=== PATIENT | male | born 1955 | race Two or more races ===

== ENCOUNTER 2022-04-28 06:22 | Inpatient (IN) ==
--- NOTE | 2022-04-10 09:26 | Anesthesiology Consultation ---
Date of Service April 10, 2022 Assessment & Plan (1) Encounter for pre-operative examination: - Patient seen at [facility] 04/07/[address] Richey- see his anesthesia consult on [facility] account (surgery was not booked at time of his visit). -Hospice Music Therapist needed: Icelandic (OR aware)- son aides in obtaining medical history/when paramedical aide not present -COVID screening: Per assessment on 04/07: No known COVID-19 positive contacts or current COVID-19 related symptoms. Travel screen- [place] 04/07 (via car). Patient vaccinated. At surgeon discretion if preop Covid testing being done. -Outpatient joint assessment: If surgeon requests review for outpatient joint pathway, patient is not recommended candidate for outpatient joint program from anesthesia standpoint. - Per Dr. Richey. He will review case with patient's PCP (Dr. Cedillo) regarding optimization for upcoming surgery. Patient scheduled to see PCP for follow-up visit/preop evaluation (appt 04/15; [facility] [place]). Chart Review Chart Review: Patient seen in Pre Admission Testing (04/07/22) History Surgery Operation Date: 04/28/22 09:15 Proposed Procedures p Right Total Knee Arthroplasty - Mitchel James MD Height/Weight Height: 6 ft 1 in Weight: 107.955 kg Allergies Allergy/AdvReac Type Severity Reaction Status Date / Time No Known Drug Allergies Allergy Verified 04/07/22 13:14 Medications Home Medications Medication Instructions Recorded Confirmed Last Taken bisoprolol fumarate 5 mg tablet 5 mg PO QAM 03/19/22 04/09/22 Unknown diltiazem HCl 60 mg 60 mg PO QAM 03/19/22 04/09/22 Unknown capsule,extended release 12 hr ezetimibe 10 mg tablet 10 mg PO QPM 03/19/22 04/09/22 Unknown rosuvastatin 20 mg tablet 20 mg PO QPM 03/19/22 04/09/22 Unknown Arcoxia 90 mg PO DAILY 04/07/22 04/09/22 Unknown Aspirin Protect 100 mg PO QPM 04/07/22 04/09/22 Unknown iron 50 mg iron tablet 1 tab PO DAILY 04/07/22 04/09/22 Unknown tramadol 50 mg tablet 50 mg PO TID PRN Pain 04/07/22 04/09/22 Unknown Past Medical History Medical History Anemia Hyperlipidemia Hypertension Osteoarthritis Rheumatic fever AT AGE 7 Past Family History Family History Mother Hypertension Other No family history of adverse response to anesthesia Denies family history of Ovarian cancer Prostate cancer Myocardial infarction Breast cancer Colorectal cancer Past Surgical History Surgical History History of hernia surgery A CHILD History of tonsillectomy and adenoidectomy History of tooth extraction Social History Smoking Status: Former smoker tobacco type: cigarettes Smoking cigarettes per day: HOOKAH USE IN PAST Smoking End Date: 6 MONTHS AGO Hx Alcohol Use: No Hx Substance Use: No substance use type: does not use Lab Results Anesthesia Preop Results Results Anesthesia Widget: WBC 8.90 K/ul (4.8-10.8) 04/07/22 Hgb 11.3 g/dl (14.0-18.0) L 04/07/22 Hct 36.6 % (40.1-51.0) L 04/07/22 Plt 399 K/uL (130-400) 04/07/22 Na 138 mmol/L (136-145) 04/07/22 K 3.7 mmol/L (3.5-5.1) 04/07/22 Cl 102 mmol/L (98-107) 04/07/22 CO2 29 mmol/L (21-32) 04/07/22 BUN 21 mg/dl (6-23) 04/07/22 Creat 1.00 mg/dl (0.6-1.4) 04/07/22 Glucose Level 95 mg/dl (70-99(Fasting)) 04/07/22 PT 11.1 Seconds (9.0-12.0) 04/07/22 PTT 29.3 Seconds (21.0-31.0) 04/07/22 INR 1.0 (0.9-1.1) 04/07/22 Blood Type O Positive 04/07/22 Antibody Screen NEGATIVE 04/07/22 Testing Electrocardiogram Date: 04/07/22 SB at 49bpm. Otherwise normal ECG. Chest X-Ray Date: 04/07/22 FINDINGS: Cardiomediastinal and hilar silhouettes are within normal limits. There is mild diaphragmatic flattening. No pneumothorax, pleural effusion, air space consolidation or overt pulmonary edema. Spondylitic spurring of the spine. IMPRESSION: No acute process.
[~2022-04-28 06:22] MED LIST: ACETAMINOPHEN 500 MG TAB PO SCH; CeleBREX 200 MG CAP PO SCH; FAMOTIDINE 20 MG TAB PO SCH; General Order Problem(s) SCH; LR 500ML BOLUS, THEN 15ML/HR IV SCH; METOCLOPRAMIDE HCL 10 MG TABLET PO SCH; ROPIVACAINE 0.5% HCL/PF 150 MG, BUPIVACAINE 0.75% MPF 20 ML, EPINEPHrine 30MG/30ML (OR ... INSTIL SCH; TRANEXAMIC ACID 1,000 MG **IV Intra-op IV SCH; TRANEXAMIC ACID 1,000 MG **IV Pre-op IV SCH; ceFAZolin 2000MG 2,000 MG/15 ML SYR IV SCH; dexAMETHasone 4 MG TAB PO SCH
[2022-04-28] MEDS ORDERED: BUPIVACAINE 0.5 % 5 MG/1 ML PF 10ML VIAL ONE (06:37)
[2022-04-28] MEDS ORDERED: ROPIVACAINE 0.5% 5 MG/ML 30 ML VIAL ONE (06:37)
--- NOTE | 2022-04-28 07:29 | History & Physical Report ---
Date of Service April 28, 2022 Assessment & Plan (1) Osteoarthritis of right knee: Plan: After the failure of conservative treatment I recommended proceeding with a total knee replacement. I explained the risk benefits and alternatives to the patient through an elementary special education teacher and he has consented to proceed. History of Present Illness Chief Complaint: Right knee osteoarthritis Primary Care Provider: Ulises Cedillo DO The patient is a 67-year-old male recently moved to the [facility] from [place]. He has osteoarthritis of bilateral knees. Right is worse than the left. After the failure of conservative treatment I recommended proceeding with a right total knee replacement. Allergies Allergy/AdvReac Type Severity Reaction Status Date / Time No Known Drug Allergies Allergy Verified 04/28/22 07:13 Home Medications Medication Instructions Recorded Confirmed Type bisoprolol fumarate 5 mg tablet 5 mg PO QAM 03/19/22 04/28/22 History diltiazem HCl 60 mg 60 mg PO QAM 03/19/22 04/28/22 History capsule,extended release 12 hr ezetimibe 10 mg tablet (Zetia) 10 mg PO DAILY 03/19/22 04/28/22 History rosuvastatin 20 mg tablet (Crestor) 20 mg PO DAILY 03/19/22 04/28/22 History Arcoxia 90 mg PO DAILY 04/07/22 04/28/22 History Aspirin Protect 100 mg PO QPM 04/07/22 04/28/22 History iron 50 mg iron tablet 1 tab PO DAILY 04/07/22 04/28/22 History tramadol 50 mg tablet 50 mg PO TID PRN Pain 04/07/22 04/28/22 History Past Med/Surg History Medical History Anemia Hyperlipidemia Hypertension Osteoarthritis Rheumatic fever AT AGE 7 Surgical History History of hernia surgery A CHILD History of tonsillectomy and adenoidectomy History of tooth extraction Family History Mother Hypertension Other No family history of adverse response to anesthesia Denies family history of Ovarian cancer Prostate cancer Myocardial infarction Breast cancer Colorectal cancer Social History (Updated 03/19/22 @ 09:28 by Rafat Miller LPN) Smoking Status: Former smoker Cigarettes Per Day: HOOKAH USE IN PAST; Smoking End Date: 6 MONTHS AGO; Second Hand Exposure: No; Hx Alcohol Use: No Hx Substance Use: No Preferred Language: Azeri Communication Tools: Language Line Claims Examiner Visual Impairment: No Limitations Hearing Ability: Normal Claims Examiner Required: Yes Beliefs That Will Affect Care: None marital status: Current Living Situation: Family current occupational status: retired How many Children do You have: 4 Feels Safe at Home: Yes Safety Concerns: Feels Safe At This Time Childhood Exposure to Second-Hand Smoke: No caffeine: Yes (tea daily ) Dental Care, Regularly: Yes Physical Activity Frequency: Does not Exercise Seatbelt Use: always Sunscreen Use: Yes Assistive Devices: Cane Physical Exam Constitutional: Patient is well developed and well nourished. No acute distress. Eyes: Pupils are equal and reactive to light and accommodation. Neck: trachea midline, no thyromegaly Respiratory: normal respiratory effort, lungs clear to auscultation Cardiovascular: RRR, no murmur, no edema Musculoskeletal: Right knee +10 -100 degrees. Diffuse tenderness. 2+ pseudovalgus laxity. No calf tenderness. Skin: no rashes, warm and dry Neurologic: Intact Results & Data Results & Data ([facility]) Vital Signs (Past 12 Hours) Vital Signs Temp Pulse Resp BP Pulse Ox O2 Del Method 04/28/22 07:19 36.6 C 58 L 18 110/58 L 96 Room Air Diagnostic Findings Right knee x-rays. Tricompartmental osteoarthritis with joint space narrowing, subchondral sclerosis and cyst formation, osteophyte formation.
[2022-04-28] MEDS: PREGABALIN 75 MG CAP PO SCH (07:52)
[2022-04-28] MEDS ORDERED: MIDAZOLAM HCL 1 MG/ML 2ML VIAL ONE ×2 (07:57)
[2022-04-28] MEDS ORDERED: ePHEDrine sulfate 50 MG/ML AMP IV PRN (08:23)
[2022-04-28] MEDS ORDERED: ONDANSETRON INJ 2 MG/ML 2 ML VIAL IV PRN ×3 (08:23→12:39)
[2022-04-28] MEDS ORDERED: HYDROmorphone INJ 0.5 MG/0.5 ML SYR IV PRN (08:23)
[2022-04-28] MEDS ORDERED: KETOROLAC 30 MG/ML VIAL IV PRN (08:23)
[2022-04-28] MEDS ORDERED: ATROPINE SULFATE 0.1 MG/ML 10ML SYR IV PRN (08:23)
[2022-04-28] MEDS ORDERED: ONDANSETRON INJ 2 MG/ML 2 ML VIAL ONE (09:46)
[2022-04-28] MEDS ORDERED: PROPOFOL IV EMULSION 10 MG/ML 20 ML VIAL IV ONE (09:46)
[2022-04-28] MEDS ORDERED: ePHEDrine sulfate 50 MG/ML AMP ONE (09:51)
--- NOTE | 2022-04-28 10:49 | Post Operative Brief Note ---
Immediate Post Op Note v1 Date of Surgery April 28, 2022 Pre & Post Diagnosis Operation Date: 04/28/22 09:05 Pre-Op Diagnosis: Right Knee Osteoarthritis Post-Op Diagnosis: Right Knee Osteoarthritis I identified the patient and participated in the time-out.: Yes Procedure Operation Date: 04/28/22 09:05 Actual Procedures p Right Total Knee Arthroplasty, Cemented(Right) - Mitchel James MD Surgeon Mitchel James MD Hr Consultant Roderick Mayo PA-C Estimated Blood Loss 5 Findings Consistent with Post-Op Diagnosis Osteoarthritis right knee Anesthesia Type General Regional Complications none
[2022-04-28] MEDS ORDERED: oxyCODONE HCL IR 5 MG TAB (IMMEDIATE RELEASE) PO PRN (10:51)
--- NOTE | 2022-04-28 10:51 | Operative Report ---
Post Operative Report Pre & Post Diagnosis Operation Date: 04/28/22 09:05 Pre-Op Diagnosis: Right Knee Osteoarthritis Post-Op Diagnosis: Right Knee Osteoarthritis I identified the patient and participated in the time-out.: Yes Procedure Operation Date: 04/28/22 09:05 Actual Procedures p Right Total Knee Arthroplasty, Cemented(Right) - Mitchel James MD Surgeon Mitchel James MD Windows Technical Specialist Roderick Mayo PA-C Estimated Blood Loss 5 Findings Consistent with Post-Op Diagnosis Osteoarthritis right knee Specimens Bone and cartilage Drains No drains Anesthesia Type General Regional Complications No complications Indications The patient is a 67-year-old male with right knee osteoarthritis. After the failure of conservative treatment I recommended a total knee replacement. I explained the risk benefits and alternatives to him and he consented to proceed. Description of Procedure Implants: Vance triathlon cemented cruciate retaining total knee replacement. Femur size 6. Tibia size 6 primary baseplate. Polyethylene size 6.9 mm. Patella size 39 mm symmetrical Procedure: The patient was taken to the operating room and after verifying their identity and confirming the operative side spinal anesthesia and a regional block was administered. A nonsterile tourniquet was placed on the operative leg and the operative leg was sterilely prepped and draped in usual fashion. After exsanguinating the leg and inflating the tourniquet a 6 inch incision was made over the patella and carried sharply through subcutaneous tissue. A medial parapatellar arthrotomy was performed, the patella was everted, and planed to a thickness of 14 mm. The appropriate size patella was trialed and the drill holes were completed. The knee was flexed and the femur cleaned of soft tissue. The femoral intramedullary guide was utilized to take a 5 valgus cut 10 mm total resection. The distal femur cut was completed. The cutting guide was removed. The AP sizing guide was placed in the correct size determined. The appropriately sized sized 4 in 1 cutting guide was placed and its position confirmed with the epicondyle axis and anterior cortex. The cuts were completed. The tibia was subluxed forward and the extra medullary tibial guide was placed and pinned in place. A 2 mm resection was measured on the medial tibial plateau perpendicular to the long axis of the tibia. The proximal tibia was cut. The guide was removed. A lamina access services librarian was placed with the knee in 90 of flexion in the remaining meniscus and posterior soft tissue were removed. The PCL was preserved. 20 cc of local injection was utilized in the posterior capsule and soft tissues. The knee was balanced in flexion and extension utilizing the gap radio sportscaster. The tibia was subluxed forward and the appropriately sized trial was placed and pinned in place. The femoral trial was placed and the appropriate size poly-was utilized to achieve full extension, full flexion and good stability to varus and valgus stress. Trial components were all removed. The knee was thoroughly irrigated with pulse lavage, bacteriocidal wash, and a repeat pulse lavage. 20 cc of local injection was utilized in the medial tissues and 20 cc in the lateral tissues. Antibiotic cement was mixed using vacuum technique in the tibial and femoral components were cemented in place. The poly-was inserted and the knee held in full extension while the cement hardened. The patella was cemented and clamped. Excess cement was carefully removed. After the cement hardened range of motion was once again assessed and noted to be full including full extension and good stability to varus and valgus stress with central patellar tracking. The knee was irrigated with pulse lavage, a bacteriocidal wash, and a repeat pulse lavage. 20 cc of local was used in the anterior subcutaneous tissues. The arthrotomy was closed with #1 Ethibond, the remaining incision with 2-0 Vicryl and ashley. A silver dressing was applied and a compression wrap. The patient tolerated the procedure well and there were no intraoperative complications. Roderick Mayo PA-C assisted in all aspects of the procedure including patient positioning, prepping and draping, manipulation of surgical instruments and retractors, wound closure, dressing placement, and compression wrap placement. I attest to the content of the Intraoperative Record and any orders documented therein. Any exceptions are noted below.
--- NOTE | 2022-04-28 12:36 | Anesthesiology Progress Note ---
Date of Service April 28, 2022 Anesthesia Post Procedure Vital Signs Vital Signs: Temp Pulse Pulse Resp BP BP Pulse Ox 04/28/22 12:25 71 14 102/57 L 96 04/28/22 12:10 70 14 106/54 L 96 04/28/22 11:55 36.2 C L 66 13 103/54 L 94 04/28/22 11:45 67 13 103/54 L 94 04/28/22 11:35 79 13 101/48 L 100 04/28/22 11:25 72 17 100/54 L 100 04/28/22 11:18 36.7 C 74 14 86/50 L 100 04/28/22 07:19 36.6 C 58 L 18 110/58 L 96 O2 Del Method O2 Flow Rate 04/28/22 12:25 Room Air 04/28/22 12:10 Room Air 04/28/22 11:55 Room Air 04/28/22 11:45 Room Air 04/28/22 11:35 Oxymask 4 04/28/22 11:25 Oxymask 4 04/28/22 11:18 Oxymask 8 04/28/22 07:19 Room Air Transfer of Care Handoff Completed per policy Notes Mental Status: alert / awake / arousable Patient Amnestic to Procedure: Yes Nausea / Vomiting: adequately controlled Pain: adequately controlled Airway Patency, RR, SpO2: stable & adequate BP & HR: stable & adequate Hydration State: stable & adequate Anesthetic Complications: no major complications apparent
[2022-04-28] MEDS ORDERED: NALOXONE HCL 0.4 MG/1 ML VIAL/CARP IV PRN (12:39)
[2022-04-28] MEDS: ACETAMINOPHEN 500 MG TAB PO SCH ×2 (14:24→21:26)
[2022-04-28] MEDS: ceFAZolin 2000MG 2,000 MG/15 ML SYR IV SCH (18:37)
[2022-04-28] MEDS: CeleBREX 200 MG CAP PO SCH (21:53)
[2022-04-28] MEDS: MELATONIN 3 MG TAB PO PRN (23:08)
[2022-04-29] MEDS: ceFAZolin 2000MG 2,000 MG/15 ML SYR IV SCH (02:57)
[2022-04-29] MEDS: oxyCODONE HCL IR 5 MG TAB (IMMEDIATE RELEASE) PO PRN ×4 (03:06→17:42)
[2022-04-29] MEDS: ACETAMINOPHEN 500 MG TAB PO SCH ×3 (06:18→21:15)
[2022-04-29] MEDS: PREGABALIN 75 MG CAP PO SCH (06:18)
[2022-04-29] MEDS: CeleBREX 200 MG CAP PO SCH ×2 (07:40→20:12)
--- NOTE | 2022-04-29 09:11 | Orthopedic Progress Note ---
Date of Service April 29, 2022 Assessment & Plan (1) Osteoarthritis of right knee: Plan: POD 1 s/p Right TKA PT/OT protocols. WBAT. DVT prophylaxis - ASA bid, SCD's Pain management as written. DC planning- HH services upon discharge. Plan for dc home today after PT/OT. Admission and Anticipated Discharge Date Admission Date: April 28, 2022 Subjective POD 1 Pt lying in bed awake, and alert. Family present and interpreting for patient. Pt having some pain this AM in the knee. Appears comfortable presently. No other complaints. Discussed with family about the needs for PT after dc. They are hoping for HH services if possible. Will discuss with CM. Physical Exam Physical Exam: Dressings C/D/I. Calves, soft,NT. NV intact. Toes mobile. Pt has good DF/PF of the right foot. Results & Data ([facility]) Vital Signs (Past 12 Hours) Vital Signs Temp Pulse Resp BP Pulse Ox O2 Del Method 04/29/22 08:16 36.6 C 67 16 112/70 96 Room Air 04/29/22 03:10 36.7 C 72 16 115/69 94 Room Air 04/28/22 23:08 37 C 65 16 110/65 96 Room Air 04/28/22 22:29 36.3 C L 72 22 107/61 95 Room Air
[2022-04-29] MEDS: ASPIRIN 81 MG ECTAB PO SCH ×2 (10:51→20:12)
[2022-04-29] MEDS: HYDROmorphone INJ 0.5 MG/0.5 ML SYR IV PRN ×3 (11:35→20:29)
--- NOTE | 2022-04-29 13:34 | Hospitalist Consultation ---
Date of Consultation April 29, 2022 Assessment & Plan (1) Status post right knee replacement: - POD#1 s/p R TKA - Pain control, periop abx, DVT ppx, and WB status per primary service - Recommend I/S q1h while awake for atelectasis/pna prevention - DVT ppx advised for minimum of 14 days, drug choice/dose/duration at ortho's discretion - PT/OT eval and case management consult to assist in dc planning - Post op CBC and BMP have been ordered (2) Hypertension: - BP well controlled on Diltiazem & Bisoprolol (3) Hyperlipidemia: - Continue Zetia and Crestor (4) Anemia: - Chronic, Hgb 11.3 pre op - Obtain CBC w/o diff today - Continue iron supplementation - F/u with pcp Plan Recommendations are as outlined above. Will sign off at this time as patient is medically stable for discharge from hospitalists standpoint. Thank you for allowing us to participate in the care of your patient. Above plan of care has been d/w Dr. Ring who has also seen and evaluated this patient. History of Present Illness Reason for Consultation: Medical management Requesting Physician: Dr. James Attending Physician: Mitchel James MD History of Present Illness Mr. Abraham is a pleasant 67 y/o M who was admitted under Dr. James's service for elective right total knee arthroplasty due to osteoarthritis and chronic knee pain that failed conservative measures. His son acts as a construction supervisor/carpenter to assist with language barrier as patient recently moved from [place]. Patient was taken to the OR on 04/28. He received spinal anesthesia. He was medicated perioperatively with pain cocktail and prophylactic antibiotics. Patient resides at home with his in a one story apartment but does have to climb several steps to enter. He plans to return there upon discharge. Patient thus far has had a fairly uneventful perioperative course but does endorse knee pain 7/10. He denies having a personal or family history of PE/DVT. He currently denies chest pain, dyspnea, n/v/d, f/c, headache, or gu symptoms. Hospitalists were asked to see in consult for medical management. Allergies Allergy/AdvReac Type Severity Reaction Status Date / Time No Known Drug Allergies Allergy Verified 04/28/22 07:13 Home Medications Medication Instructions Recorded Confirmed Type bisoprolol fumarate 5 mg tablet 5 mg PO QAM 03/19/22 04/28/22 History diltiazem HCl 60 mg 60 mg PO QAM 03/19/22 04/28/22 History capsule,extended release 12 hr ezetimibe 10 mg tablet (Zetia) 10 mg PO DAILY 03/19/22 04/28/22 History rosuvastatin 20 mg tablet (Crestor) 20 mg PO DAILY 03/19/22 04/28/22 History iron 50 mg iron tablet 1 tab PO DAILY 04/07/22 04/28/22 History tramadol 50 mg tablet 50 mg PO TID PRN Pain 04/07/22 04/28/22 History oxycodone 5 mg tablet 5 mg PO Q4 PRN pain 5 days #30 tabs 04/28/22 Rx acetaminophen 500 mg capsule 1,000 mg PO Q8H pain 14 days #84 04/29/22 Rx caps aspirin 81 mg tablet,delayed 81 mg PO BID 30 days #60 tabs 04/29/22 Rx release (Ecotrin Low Strength) celecoxib 200 mg capsule (Celebrex) 200 mg PO BID 30 days #60 caps 04/29/22 Rx polyethylene glycol 3350 17 gram 17 g PO DAILY PRN constipation #5 04/29/22 Rx oral powder packet (Miralax) ea Patient History Medical History Anemia Hyperlipidemia Hypertension Osteoarthritis Rheumatic fever AT AGE 7 Surgical History History of hernia surgery A CHILD History of tonsillectomy and adenoidectomy History of tooth extraction Family History Mother Hypertension Other No family history of adverse response to anesthesia Denies family history of Ovarian cancer Prostate cancer Myocardial infarction Breast cancer Colorectal cancer Social History (Updated 03/19/22 @ 09:28 by Rafat Miller LPN) Smoking Status: Never smoker Cigarettes Per Day: HOOKAH USE IN PAST; Second Hand Exposure: No; Hx Alcohol Use: No Hx Substance Use: No Preferred Language: Chinese Communication Ability: Effective Communication Tools: Language Line Lucerne Farmer Visual Impairment: No Limitations Hearing Ability: Normal [place] Farmer Required: Yes and Video Beliefs That Will Affect Care: None marital status: Current Living Situation: Spouse and Family current occupational status: retired How many Children do You have: 4 Feels Safe at Home: Yes Childhood Exposure to Second-Hand Smoke: No caffeine: Yes (tea daily ) Dental Care, Regularly: Yes Physical Activity Frequency: Does not Exercise Seatbelt Use: always Sunscreen Use: Yes Assistive Devices: None Review of Systems Review of Systems: All systems reviewed and are unremarkable except as noted in HPI and below. Denies fever, chills, fatigue, headache, nasal congestion, sore throat, cough, chest pain, shortness of breath, palpitations, orthopnea, PND, abdominal pain, n/v/d, constipation, dysuria, hematuria, frequency, back pain, easy bruising or bleeding, skin lesions or rashes. Physical Exam Physical Exam: GENERAL: 67 yo Well-developed, well-nourished male. NAD. HENT: AT/NC. PERRLA. Neck supple. No lymphadenopathy. LUNGS: Clear to auscultation bilaterally. No W/R/R. CARDIOVASCULAR: Regular rate and rhythm. ABDOMEN: Soft, non-tender and non-distended. Bs normoactive x 4 quad. EXTREMITIES: No edema. Non-tender. Peripheral pulses +2/4. R knee wrapped in karan. No visible drains. Neg filiberto's sign. R Calf nontender. NEUROLOGIC: A&O x3. No focal neurological deficits. CN II-XII grossly intact. PSYCHIATRIC: Cooperative. Appropriate mood and affect. SKIN: Warm, dry, intact. No rashes or lesions. Results & Data Results & Data ([facility]) Vital Signs (Past 12 Hours) Vital Signs Temp Pulse Pulse Pulse Resp BP Pulse Ox 04/29/22 11:16 36.6 C 64 16 120/72 93 04/29/22 10:05 36.6 C 65 67 66 16 112/70 96 04/29/22 08:16 36.6 C 67 16 112/70 96 04/29/22 03:10 36.7 C 72 16 115/69 94 O2 Del Method 04/29/22 11:16 Room Air 04/29/22 10:05 04/29/22 08:16 Room Air 04/29/22 03:10 Room Air Laboratory Results Labs dated 04/07/22 wbc-8.90, hgb-11.3, hct-36.6, platelet-399 sodium-138, K-3.7, chloride-102, CO2-29, BUN-21, Creat-1.0, Glucose-95, Ca-9.4 Diagnostic Findings XR chest Pre-admission PA/Lat HISTORY: 66 years-old Male pat preoperative exam. No acute chest complaints COMPARISON: None TECHNIQUE: PA and lateral views of the chest FINDINGS: Cardiomediastinal and hilar silhouettes are within normal limits. There is mild diaphragmatic flattening. No pneumothorax, pleural effusion, airspace consolidation or overt pulmonary edema. Spondylitic spurring of the spine. IMPRESSION: No acute process. ACT 112: Negative or not required by law. The above report was generated using voice recognition software. It may contain grammatical, syntax or spelling errors. Electronically signed by: Jayden Curry M.D. 04/07/2022 2:52 PM Dictated:04/07/22 1450 Transcribed: 04/07/22 1450 ECG Additional Comments: EKG 04/07/22- Sinus bradycardia, no acute ST-T wave changes. Rate 49 bpm PG Care Time/CCT Total # of Minutes Spent Total Time Spent with Patient: Total time spent is greater than 50% in coordination of care (as documented) at patient's floor/unit and/or counseling patient: Coding Level of Care Code INP/OBS CONSULT LVL 4, 60 MIN Diagnoses Status post right knee replacement Z96.651 Hypertension I10 Hyperlipidemia E78.5 Anemia D64.9
[2022-04-29 14:54] LABS: Basophils # (auto) 0.05 K/uL (0-0.2); Basophils % (auto) 0.3 %; Hematocrit (blood only) 33.8 % (40.1-51.0); Hemoglobin 10.8 g/dl (14.0-18.0); Immature Granulocytes # (auto) 0.05 K/uL (0.00-0.02); Immature Granulocytes % (auto) 0.3 %; Lymphocytes # (auto) 1.72 K/uL (1.2-3.4); Mean Corpuscular Hemoglobin 23.2 pg (25.0-34.0); Mean Corpuscular Volume 72.5 fL (80.0-100.0); Mean Platelet Volume 9.4 fL (9.4-12.4); Monocytes # (auto) 1.02 K/uL (0.24-0.82); Monocytes % (auto) 7.1 %; Neutrophils # (auto) 11.53 K/uL (1.4-6.5); Neutrophils % (auto) 80.3 %; Platelet Count 308 K/uL (130-400); RDW Coefficient of Variation 18.6 % (11.5-14.5); RDW Standard Deviation 47.5 fL (36.4-46.3); Red Blood Count 4.66 M/uL (4.63-6.08); White Blood Count 14.37 K/ul (4.8-10.8)
[2022-04-29 15:10] LABS: BUN Creatinine Ratio 25.6 (10-20); Calcium 9.3 mg/dl (8.5-10.1); Creatinine Clr Calc Pharmacy 99.4 ml/min; Est GFR (African American) 100.6 ml/min; Est GFR (Non-African American) 86.8 ml/min; Potassium 4.2 mmol/L (3.5-5.1)
[2022-04-30] MEDS: PREGABALIN 75 MG CAP PO SCH (03:03)
[2022-04-30] MEDS: oxyCODONE HCL IR 5 MG TAB (IMMEDIATE RELEASE) PO PRN ×3 (05:02→21:03)
[2022-04-30] MEDS: ACETAMINOPHEN 500 MG TAB PO SCH ×3 (05:03→20:56)
[2022-04-30] MEDS: ASPIRIN 81 MG ECTAB PO SCH ×2 (10:57→20:56)
[2022-04-30] MEDS: KETOROLAC TROMETHAMINE 15 MG/ML VIAL IV SCH ×3 (11:43→23:04)
--- NOTE | 2022-04-30 13:13 | Orthopedic Progress Note ---
Date of Service April 30, 2022 Assessment & Plan (1) Osteoarthritis of right knee: Plan: Postop day 2 status post right total knee arthroplasty PT/OT protocols. Weightbearing as tolerated. After discussion with physical therapy, they feel he would be a candidate for a rehab facility. DVT prophylaxis-aspirin p.o. twice daily, SCDs Pain management as written. DC planning-I have spoken to the family as well as case management. [facility] referral for [facility] has been placed. We feel at this time patient would be better served to go to a rehab facility. He has 15 stairs to get up into his apartment which are outdoor steps per his son. At this time he would not be able to ambulate stairs per physical therapy. They would also be able to manage his pain control better at the [facility]. Await for authorization and plan for [facility] if approved. Admission and Anticipated Discharge Date Admission Date: April 28, 2022 Subjective Postop day 2 Patient was seen earlier this morning and was complaining of pain of the right knee. He has been keeping up with his oxycodone fairly regularly but has been needing some IV hydromorphone at times. Celebrex was discontinued and I restarted him on Toradol 15 mg IV every 6 hours. Nursing states that this has seemed to help. I also spoke with physical therapy. Patient is still ambulating only up to about 30 steps. Is somewhat painful. Did not work with going up and down steps today. I spoke to the physical therapist and she feels there is no way that he would be able to attempt stairs at this time. Currently the patient is resting comfortably. His family is present. I discussed his care with his son. Physical Exam Physical Exam: Dressings have been removed. Silverlon dressing is clean, dry, and intact. He has right knee swelling consistent with surgery. Calves are soft nontender. Neurovascular intact. Toes are mobile. Results & Data ([facility]) Vital Signs (Past 12 Hours) Vital Signs Temp Pulse Pulse Resp BP Pulse Ox O2 Del Method 04/30/22 12:14 67 16 108/63 93 Room Air 04/30/22 07:26 36.6 C 60 16 126/70 92 Room Air
[2022-05-01] MEDS: PREGABALIN 75 MG CAP PO SCH (05:58)
[2022-05-01] MEDS: KETOROLAC TROMETHAMINE 15 MG/ML VIAL IV SCH ×3 (06:07→17:45)
[2022-05-01] MEDS: ACETAMINOPHEN 500 MG TAB PO SCH ×3 (06:07→21:23)
--- NOTE | 2022-05-01 06:18 | Orthopedic Progress Note ---
Date of Service May 01, 2022 Assessment & Plan (1) Osteoarthritis of right knee: Plan: Postop day 3 status post right total knee arthroplasty PT/OT protocols. Weightbearing as tolerated. After discussion with physical therapy, they feel he would be a candidate for a rehab facility. DVT prophylaxis-aspirin p.o. twice daily, SCDs Pain management as written. DC planning-I have spoken to the family as well as case management. A referral for [facility] has been placed. We feel at this time patient would be better served to go to a rehab facility. He has 15 stairs to get up into his apartment which are outdoor steps per his son. At this time he would not be able to ambulate stairs per physical therapy. They would also be able to manage his pain control better at the [facility] facility. Await for authorization and plan for [facility] if approved. Plan for dc to [facility] today if approved. Admission and Anticipated Discharge Date Admission Date: April 28, 2022 Subjective POD 3 Pt awake, alert this AM. Continues to have pain consistent with surgery but shows me that he is getting better ROM this AM. No family present and he does not appear to have any other new complaints this AM. Physical Exam Physical Exam: Silverlon C/D/I. Calves soft,NT. NV intact. Toes mobile. He does have better ROM this AM. 10-80 this AM. No other changes noted. Results & Data ([facility]) Vital Signs (Past 12 Hours) Vital Signs Temp Pulse Resp BP Pulse Ox O2 Del Method 04/30/22 21:21 37.1 C 66 16 125/73 94 Room Air
[2022-05-01] MEDS: ASPIRIN 81 MG ECTAB PO SCH ×2 (07:36→21:23)
[2022-05-01] MEDS: oxyCODONE HCL IR 5 MG TAB (IMMEDIATE RELEASE) PO PRN ×3 (07:36→21:23)
[2022-05-02] MEDS: KETOROLAC TROMETHAMINE 15 MG/ML VIAL IV SCH ×4 (00:09→17:26)
[2022-05-02] MEDS: oxyCODONE HCL IR 5 MG TAB (IMMEDIATE RELEASE) PO PRN ×2 (04:25→21:45)
[2022-05-02] MEDS: ACETAMINOPHEN 500 MG TAB PO SCH ×3 (05:36→21:46)
[2022-05-02] MEDS: PREGABALIN 75 MG CAP PO SCH (05:37)
[2022-05-02] MEDS: ASPIRIN 81 MG ECTAB PO SCH ×2 (07:33→21:45)
--- NOTE | 2022-05-02 10:39 | Orthopedic Progress Note ---
Date of Service May 02, 2022 Assessment & Plan (1) Osteoarthritis of right knee: Plan: Postop day 4 status post right total knee arthroplasty PT/OT protocols. Weightbearing as tolerated. After discussion with physical therapy, they feel he would be a candidate for a rehab facility. DVT prophylaxis-aspirin p.o. twice daily, SCDs Pain management as written. DC planning-I have spoken to the family as well as case management. A referral for [facility] has been placed. We feel at this time patient would be better served to go to a rehab facility. He has 15 stairs to get up into his apartment which are outdoor steps per his son. At this time he would not be able to ambulate stairs per physical therapy. They would also be able to manage his pain control better at the [facility] facility. Await for authorization and plan for [facility] if approved. Patient approved for [facility]. Currently waiting for bed. Discharge to [facility] when bed available. Admission and Anticipated Discharge Date Admission Date: April 28, 2022 Subjective Postop day 4 Patient lying in bed awake and alert. His son is present visiting him. Currently waiting for a bed at [facility]. No new complaints. Physical Exam Physical Exam: Silverlon dressing is clean, dry, and intact. There is a small skin blister noted at the proximal medial corner of the dressing due to the Silverlon adhesive/dressing sliding downward a little bit. Plan for removal and placement of a regular dressing. Calves are soft nontender. Neurovascular is intact. Toes are mobile. Results & Data ([facility]) Vital Signs (Past 12 Hours) Vital Signs Temp Pulse Resp BP Pulse Ox O2 Del Method 05/02/22 07:35 36.7 C 61 18 109/65 96 Room Air
[2022-05-02] MEDS: MELATONIN 3 MG TAB PO PRN (21:48)
[2022-05-03] MEDS: KETOROLAC TROMETHAMINE 15 MG/ML VIAL IV SCH ×5 (00:23→23:26)
[2022-05-03] MEDS: ACETAMINOPHEN 500 MG TAB PO SCH ×3 (05:34→21:32)
[2022-05-03] MEDS: oxyCODONE HCL IR 5 MG TAB (IMMEDIATE RELEASE) PO PRN ×2 (05:37→22:48)
[2022-05-03] MEDS: PREGABALIN 75 MG CAP PO SCH (05:38)
[2022-05-03] MEDS: ASPIRIN 81 MG ECTAB PO SCH ×2 (08:44→21:32)
--- NOTE | 2022-05-03 09:29 | Orthopedic Progress Note ---
Date of Service May 03, 2022 Assessment & Plan (1) Osteoarthritis of right knee: Plan: Postop day 5 status post right total knee arthroplasty PT/OT protocols. Weightbearing as tolerated. After discussion with physical therapy, they feel he would be a candidate for a rehab facility. DVT prophylaxis-aspirin p.o. twice daily, SCDs Pain management as written. DC planning- Awaiting bed at [facility] rehab. Admission and Anticipated Discharge Date Admission Date: April 28, 2022 Subjective Postop day 5 Patient sitting up in bed awake and alert. Appears comfortable. No new complaints. Physical Exam Physical Exam: Silverlon dressing has been removed. Regular dressing has been reapplied. Wound does appear benign. Skin blister noted proximally. Calves are soft nontender. Neurovascular intact. Toes are mobile. Results & Data ([facility]) Vital Signs (Past 12 Hours) Vital Signs Temp Pulse Pulse Resp BP BP Pulse Ox 05/03/22 07:35 36.6 C 60 18 102/65 96 05/02/22 22:43 36.8 C 65 18 107/64 96 05/02/22 21:45 O2 Del Method 05/03/22 07:35 Room Air 05/02/22 22:43 05/02/22 21:45 Room Air
[2022-05-03] MEDS: MELATONIN 3 MG TAB PO PRN (21:34)
[2022-05-04] MEDS: KETOROLAC TROMETHAMINE 15 MG/ML VIAL IV SCH (05:52)
[2022-05-04] MEDS: ACETAMINOPHEN 500 MG TAB PO SCH (05:53)
[2022-05-04] MEDS: PREGABALIN 75 MG CAP PO SCH (05:53)
[2022-05-04] MEDS ORDERED: KETOROLAC TROMETHAMINE 15 MG/ML VIAL IV PRN (07:47)
[2022-05-04] MEDS: ASPIRIN 81 MG ECTAB PO SCH (08:08)
--- NOTE | 2022-05-04 08:08 | Orthopedic Progress Note ---
Date of Service May 04, 2022 Assessment & Plan (1) Osteoarthritis of right knee: Plan: Postop day 6 status post right total knee arthroplasty PT/OT protocols. Weightbearing as tolerated. After discussion with physical therapy, they feel he would be a candidate for a rehab facility. DVT prophylaxis-aspirin p.o. twice daily, Dm,MELL's Pain management as written. Change Toradol to as needed. DC planning- Awaiting bed at [facility] rehab. Possible bed availability today. We will place a discharge order for pending transfer Admission and Anticipated Discharge Date Admission Date: May 02, 2022 Subjective Postop day 6 Patient awake and alert. Appears comfortable. No new complaints. Per case management notes, possible bed availability today at [facility]. Physical Exam Physical Exam: Incision remains benign. Swelling continues to resolve. Small blister proximally appears normal. Calves are soft and nontender. Neurovascular intact. Toes are mobile. Results & Data ([facility]) Vital Signs (Past 12 Hours) Vital Signs Temp Pulse Pulse Resp BP Pulse Ox O2 Del Method 05/04/22 07:27 36.5 C 65 18 126/73 94 Room Air 05/03/22 22:08 37 C 72 16 130/79 95 Room Air 05/03/22 21:10 Room Air
== END 2022-05-04 13:12 | DRG 470 ==
LOC: PACUINP 06:22 → ASU 06:22 → SUATTDRO 12:40 → 3N 13:42

== ENCOUNTER 2022-10-13 10:32 | Inpatient (IN) ==
--- NOTE | 2022-10-01 15:35 | Anesthesiology Consultation ---
Date of Service October 01, 2022 Assessment & Plan (1) Encounter for pre-operative examination: Chart Review Chart Review: Acceptable Risk for Surgery and Patient NOT seen in Pre Admission Testing -PCP visit 09/18/22: "for pre-op optimization for L TKA scheduled on 10/13/[address] James... Consultation for LEFT Knee Total Knee Arthroplasty... -no recent anginal symptoms -no history of arrhythmias, no recent syncopal episodes -RCRI score 0 points with 3.9% 30 day risk of , IA, or cardiac arrest -ACS Surgical risk with 4.7% risk of any complication, 4.1% risk of serious complication and 19.7% risk for discharge to nursing or rehab facility -EKG completed on 04/07/22 notable for sinus bradycardia at 49BPM without ST-Twave changes -CXR completed on 04/07/22 negative for acute processes -Echocardiogram completed on 04/14/22 with EF 55-60%, moderate aortic valve sclerosis without significant aortic valvular stenosis -Will have patientHOLD his aspirin starting October 05, 2022-- 1 week prior to procedure -Patient last hemoglobin level 10.8 on 04/29/22 -- Will have him repeat prior to procedure. -Type and screen completed on 04/07/22 with O positive blood type, negative antibody screen -Patient will likely require SNF vs inpatient rehab stay post surgery -At this time, patient is medically optimized for the above procedure -Recent Anesthesia Experience: R TKA 04/28/22: SAB (L3-4 x 1 attempt), PNB, MAC -COVID screening: Per PAT nursing assessment on 10/01/22, No known COVID-19 positive contacts or current COVID-19 related symptoms. Travel screen negative. Patient vaccinated for Covid. At surgeon discretion if preop Covid testing being done. -Outpatient joint assessment: If surgeon requests review for outpatient joint pathway, patient is not recommended candidate for outpatient joint program from anesthesia standpoint. History Surgery Operation Date: 10/13/22 14:00 Proposed Procedures p Left Total Knee Arthroplasty - Mitchel James MD Height/Weight Height: 6 ft 1 in Weight: 104 kg Allergies Allergy/AdvReac Type Severity Reaction Status Date / Time No Known Drug Allergies Allergy Verified 10/01/22 14:36 Medications Home Medications Medication Instructions Recorded Confirmed Last Taken bisoprolol fumarate 5 mg tablet 5 mg PO QAM 90 days #90 tabs 05/20/22 10/01/22 Unknown hydrocortisone 2.5 % topical cream See Rx Instructions .Route 07/09/22 10/01/22 Unknown with perineal applicator .COMPLEX #28 grams (Procto-Med HC) aspirin 81 mg tablet,delayed 81 mg PO QAM 09/18/22 10/01/22 Unknown release ferrous gluconate 324 mg (38 mg 324 mg PO .every other day 90 days 09/18/22 10/01/22 Unknown iron) tablet #90 tabs diltiazem HCl 120 mg 120 mg PO QAM 10/01/22 10/01/22 Unknown capsule,extended release 24 hr ezetimibe 10 mg tablet (Zetia) 10 mg PO QAM 10/01/22 10/01/22 Unknown pantoprazole 40 mg tablet,delayed 40 mg PO BID 10/01/22 10/01/22 Unknown release rosuvastatin 20 mg tablet (Crestor) 20 mg PO HS 10/01/22 10/01/22 Unknown Past Medical History Medical History (Updated 10/01/22 @ 15:31 by Valerie Bloom PA-C) Anemia PCP monitoring (pt occasionally takes PO iron supplements; not currently taking) GERD (gastroesophageal reflux disease) Hyperlipidemia Hypertension Osteoarthritis Osteoarthritis of right knee s/p TKA 04/28/22 Rheumatic fever AT AGE 7 Past Family History Family History Mother Hypertension Other No family history of adverse response to anesthesia Denies family history of Ovarian cancer Prostate cancer Myocardial infarction Breast cancer Colorectal cancer Past Surgical History Surgical History (Updated 10/01/22 @ 15:31 by Valerie Bloom PA-C) History of hernia surgery A CHILD History of tonsillectomy and adenoidectomy History of tooth extraction Hx of total knee replacement Right TKA 04/28/22: SAB (L3-4 x 1 attempt), PNB, MAC Social History Smoking Status: Never smoker tobacco type: cigarettes Smoking cigarettes per day: HOOKAH USE IN PAST Do You Dip or Chew Tobacco: No Hx Alcohol Use: No Hx Substance Use: No substance use type: does not use Lab Results Anesthesia Preop Results Results Anesthesia Widget: WBC 5.98 K/ul (4.8-10.8) 09/18/22 Hgb 12.6 g/dl (14.0-18.0) L 09/18/22 Hct 39.7 % (42.0-52.0) L 09/18/22 Plt 281 K/uL (130-400) 09/18/22 Na 139 mmol/L (136-145) 09/18/22 K 3.8 mmol/L (3.5-5.1) 09/18/22 Cl 107 mmol/L (98-107) 09/18/22 CO2 26 mmol/L (21-32) 09/18/22 BUN 17 mg/dl (6-23) 09/18/22 Creat 0.74 mg/dl (0.6-1.4) 09/18/22 Glucose Level 119 mg/dl (70-99(Fasting)) H 09/18/22 COVID-19 PCR NEGATIVE (Negative) 09/18/22 Testing Electrocardiogram Date: 04/07/22 Findings: + SB @ (49bpm) Chest X-Ray Date: 04/07/22 Findings: + NAD Echocardiogram Date: 04/14/22 EF: 55-60% LV Function: normal mod cLVH. Gr I DD. Aortic valve sclerosis is moderate, without any significant aortic stenosis. mild AR. Mild MR. nl RVSP.
[~2022-10-13 10:32] MED LIST changes: +BUPIVACAINE 0.5 % 5 MG/1 ML PF 10ML VIAL ONE; -FAMOTIDINE 20 MG TAB PO SCH; -General Order Problem(s) SCH; -METOCLOPRAMIDE HCL 10 MG TABLET PO SCH; +ROPIVACAINE 0.5% 5 MG/ML 30 ML VIAL ONE; -TRANEXAMIC ACID 1,000 MG **IV Intra-op IV SCH
[2022-10-13] MEDS ORDERED: PROPOFOL IV EMULSION 10 MG/ML 20 ML VIAL IV ONE ×3 (12:44→15:06)
[2022-10-13] MEDS ORDERED: MIDAZOLAM HCL 1 MG/ML 2ML VIAL ONE ×2 (12:47→13:02)
[2022-10-13] MEDS ORDERED: fentaNYL citrate PF 100 MCG/2 ML VIAL ONE (12:47)
--- NOTE | 2022-10-13 13:02 | History & Physical Report ---
Date of Service October 13, 2022 Assessment & Plan (1) Osteoarthritis of left knee: Plan: Left total knee replacement. I explained the risk benefits and alternatives to him and he has consented to proceed. History of Present Illness Chief Complaint: Left knee osteoarthritis Primary Care Provider: Ulises Cedillo DO The patient is a 67-year-old male with left knee osteoarthritis. After failing conservative treatment I recommended proceeding with a left total knee replacement. Allergies Allergy/AdvReac Type Severity Reaction Status Date / Time No Known Drug Allergies Allergy Verified 10/13/22 11:10 Home Medications Medication Instructions Recorded Confirmed Type bisoprolol fumarate 5 mg tablet 5 mg PO QAM 90 days #90 tabs 05/20/22 10/13/22 Rx hydrocortisone 2.5 % topical cream See Rx Instructions .Route 07/09/22 10/13/22 Rx with perineal applicator .COMPLEX #28 grams (Procto-Med HC) aspirin 81 mg tablet,delayed 81 mg PO QAM 09/18/22 10/13/22 History release ferrous gluconate 324 mg (38 mg 324 mg PO .every other day 90 days 09/18/22 10/13/22 Rx iron) tablet #90 tabs diltiazem HCl 120 mg 120 mg PO QAM 10/01/22 10/13/22 History capsule,extended release 24 hr ezetimibe 10 mg tablet (Zetia) 10 mg PO QAM 10/01/22 10/13/22 History pantoprazole 40 mg tablet,delayed 40 mg PO BID 10/01/22 10/13/22 History release rosuvastatin 20 mg tablet (Crestor) 20 mg PO HS 10/01/22 10/13/22 History Past Med/Surg History Medical History Anemia PCP monitoring (pt occasionally takes PO iron supplements; not currently taking) GERD (gastroesophageal reflux disease) Hyperlipidemia Hypertension Osteoarthritis Osteoarthritis of right knee s/p TKA 04/28/22 Rheumatic fever AT AGE 7 Surgical History History of hernia surgery A CHILD History of tonsillectomy and adenoidectomy History of tooth extraction Hx of total knee replacement Right TKA 04/28/22: SAB (L3-4 x 1 attempt), PNB, MAC Family History Mother Hypertension Other No family history of adverse response to anesthesia Denies family history of Ovarian cancer Prostate cancer Myocardial infarction Breast cancer Colorectal cancer Social History Smoking Status: Never smoker Cigarettes Per Day: HOOKAH USE IN PAST; Second Hand Exposure: No; Do You Dip or Chew Tobacco: No; Tobacco Cessation Education Requested by Patient: No Hx Alcohol Use: No Hx Substance Use: No Preferred Language: French Communication Ability: Impaired Communication Ability Comment: LANGUAGE BARRIER Communication Tools: Language Line Reading Intervention Teacher Visual Impairment: No Limitations Hearing Ability: Normal Reading Intervention Teacher Required: Yes and Video Beliefs That Will Affect Care: None marital status: Current Living Situation: Spouse and Family current occupational status: retired How many Children do You have: 4 Other Information That Helps Us Care for You: No Childhood Exposure to Second-Hand Smoke: No caffeine: Yes (tea daily ) Dental Care, Regularly: Yes Physical Activity Frequency: Does not Exercise Seatbelt Use: always Sunscreen Use: Yes Assistive Devices: Cane Physical Exam Constitutional: Well-developed, well-nourished, no acute distress. Awake alert and oriented x3. Eyes: Pupils equal and reactive to light ENMT: Clear Neck: Supple Respiratory: Clear to auscultation Cardiovascular: Regular rate and rhythm Musculoskeletal: Left knee. Decreased range of motion, moderate effusion, medial and lateral joint line tenderness. No calf tenderness. Skin: Intact Results & Data Results & Data Vital Signs (Past 12 Hours) Vital Signs Temp Pulse Resp BP Pulse Ox O2 Del Method 10/13/22 11:04 36.7 C 57 L 20 124/56 L 97 Room Air
[2022-10-13] MEDS ORDERED: ePHEDrine sulfate 50 MG/ML AMP IV PRN (13:05)
[2022-10-13] MEDS ORDERED: ONDANSETRON INJ 2 MG/ML 2 ML VIAL IV PRN ×2 (13:05→15:07)
[2022-10-13] MEDS ORDERED: ATROPINE SULFATE 0.1 MG/ML 10ML SYR IV PRN (13:05)
[2022-10-13] MEDS ORDERED: fentaNYL citrate PF 100 MCG/2 ML VIAL IV PRN (13:05)
[2022-10-13] MEDS ORDERED: ORTHO JOINT ANESTHETIC ONE (13:29)
[2022-10-13] MEDS ORDERED: ONDANSETRON INJ 2 MG/ML 2 ML VIAL ONE (14:12)
--- NOTE | 2022-10-13 15:05 | Post Operative Brief Note ---
Immediate Post Op Note v1 Date of Surgery October 13, 2022 Pre & Post Diagnosis Operation Date: 10/13/22 12:45 Pre-Op Diagnosis: Left Knee Primary Osteoarthritis Post-Op Diagnosis: Left Knee Primary Osteoarthritis I identified the patient and participated in the time-out.: Yes Procedure Operation Date: 10/13/22 12:45 Actual Procedures p Left Total Knee Arthroplasty, Cemented(Left) - Mitchel James MD Surgeon Mitchel James MD Social Service Coordinator Jenn Harmon PA-C Estimated Blood Loss 5 Findings Consistent with Post-Op Diagnosis Osteoarthritis of left knee Anesthesia Type MAC Spinal Regional
--- NOTE | 2022-10-13 15:06 | Operative Report ---
Post Operative Report Pre & Post Diagnosis Operation Date: 10/13/22 12:45 Pre-Op Diagnosis: Left Knee Primary Osteoarthritis Post-Op Diagnosis: Left Knee Primary Osteoarthritis I identified the patient and participated in the time-out.: Yes Procedure Operation Date: 10/13/22 12:45 Actual Procedures p Left Total Knee Arthroplasty, Cemented(Left) - Mitchel James MD Surgeon Mitchel James MD Furniture Assembly Supervisor Jenn Harmon PA-C Estimated Blood Loss 5 Findings Consistent with Post-Op Diagnosis Osteoarthritis left knee Specimens Bone and cartilage left knee Anesthesia Type MAC Spinal Regional Complications No complications Indications Patient is a 67-year-old male with left knee osteoarthritis. After the failure of conservative treatment I recommended a left total knee replacement. I explained the risk benefits and alternatives to him and he consented to proceed. Description of Procedure Implants: Vance triathlon cruciate retaining cemented total knee replacement. Femur size 7. Tibia size 6 primary baseplate. Polyethylene size 6 x 11 mm cruciate stabilized. Patella size 39 mm symmetrical Procedure the patient was taken to the operating room and after verifying their identity and confirming the operative side spinal anesthesia and a regional block was administered. A nonsterile tourniquet was placed on the operative leg and the operative leg was sterilely prepped and draped in usual fashion. After exsanguinating the leg and inflating the tourniquet a 6 inch incision was made over the patella and carried sharply through subcutaneous tissue. A medial par apatellar arthrotomy was performed, the patella was everted, and planed to a thickness of 14 mm. The appropriate size patella was trialed and the drill holes were completed. The knee was flexed and the femur cleaned of soft tissue. The femoral intramedullary guide was utilized to take a 5 valgus cut 10 mm total resection. The distal femur cut was completed. The cutting guide was removed. The AP sizing guide was placed in the correct size determined. The appropriately sized sized 4 in 1 cutting guide was placed and its position confirmed with the epicondyle axis and anterior cortex. The cuts were completed. The tibia was subluxed forward and the extra medullary tibial guide was placed and pinned in place. A 2 mm resection was measured on the medial tibial plateau perpendicular to the long axis of the tibia. The proximal tibia was cut. The guide was removed. A lamina printed circuit boards inspector was placed with the knee in 90 of flexion in the remaining meniscus and posterior soft tissue were removed. The PCL was preserved. 20 cc of local injection was utilized in the posterior capsule and soft tissues. The knee was balanced in flexion and extension utilizing the gap patternmaker hand. The tibia was subluxed forward and the appropriately sized trial was placed and pinned in place. The femoral trial was placed and the appropriate size poly-was utilized to achieve full extension, full flexion and good stability to varus and valgus stress. Trial components were all removed. The knee was thoroughly irrigated with pulse lavage, bacteriocidal wash, and a repeat pulse lavage. 20 cc of local injection was utilized in the medial tissues and 20 cc in the lateral tissues. Antibiotic cement was mixed using vacuum technique in the tibial and femoral components were cemented in place. The poly-was inserted and the knee held in full extension while the cement hardened. The patella was cemented and clamped. Excess cement was carefully removed. After the cement hardened range of motion was once again assessed and noted to be full including full extension and good stability to varus and valgus stress with central patellar tracking. The knee was irrigated with pulse lavage, a bacteriocidal wash, and a repeat pulse lavage. 20 cc of local was used in the anterior subcutaneous tissues. The arthrotomy was closed with #1 Ethibond, the remaining incision with 2-0 Vicryl and ashley. A silver dressing was applied and a compression wrap. The patient tolerated the procedure well and there were no intraoperative complications.: Jenn Harmon PA-C assisted in all aspects of the procedure including patient positioning, prepping and draping, manipulation of surgical instruments and retractors, wound closure, dressing placement, and compression wrap placement. I attest to the content of the Intraoperative Record and any orders documented therein. Any exceptions are noted below.
[2022-10-13] MEDS ORDERED: bisacodyL 10 MG SUPP PR PRN (15:07)
[2022-10-13] MEDS ORDERED: MAGNESIUM HYDROXIDE SUSP 30 ML UDC PO PRN (15:07)
[2022-10-13] MEDS ORDERED: NALOXONE HCL 0.4 MG/1 ML VIAL/CARP IV PRN (15:07)
[2022-10-13] MEDS ORDERED: METOCLOPRAMIDE HCL INJ 5 MG/ML 2 ML VIAL IV PRN (15:07)
--- NOTE | 2022-10-13 16:29 | Anesthesiology Progress Note ---
Date of Service October 13, 2022 Anesthesia Post Procedure Vital Signs Vital Signs: Temp Pulse Resp BP Pulse Ox O2 Del Method O2 Flow Rate 10/13/22 16:05 36.5 C 55 L 16 103/59 L 95 Nasal Cannula 2 10/13/22 15:45 58 L 13 107/49 L 99 Oxymask 3 10/13/22 16:25 36.5 C 56 L 13 107/59 L 92 Nasal Cannula 2 10/13/22 16:15 36.5 C 54 L 10 L 107/56 L 96 Nasal Cannula 2 10/13/22 15:55 36.5 C 56 L 15 100/55 L 96 Nasal Cannula 2 10/13/22 15:35 57 L 16 86/51 L 99 Oxymask 5 10/13/22 15:26 36.5 C 62 12 84/48 L 95 Oxymask 7 10/13/22 11:04 36.7 C 57 L 20 124/56 L 97 Room Air Pain Intensity Left Knee: Pain Intensity: 0 Transfer of Care Handoff Completed per policy Notes Mental Status: alert / awake / arousable and participated in evaluation Patient Amnestic to Procedure: Yes Nausea / Vomiting: adequately controlled Pain: adequately controlled Airway Patency, RR, SpO2: stable & adequate BP & HR: stable & adequate Hydration State: stable & adequate Anesthetic Complications: no major complications apparent and Pt Satisfied with anesthetic care
[2022-10-13] MEDS: FERROUS GLUCONATE 324 MG TAB PO SCH (18:27)
[2022-10-13] MEDS: SODIUM CHLORIDE 0.9% 1000ML 1,000 ML IV SCH (18:27)
[2022-10-13] MEDS: ROSUVASTATIN CALCIUM 20 MG TAB PO SCH (20:40)
[2022-10-13] MEDS: DOCUSATE SODIUM 100 MG CAP PO SCH (20:40)
[2022-10-13] MEDS: ceFAZolin 2000MG 2,000 MG/15 ML SYR IV SCH (20:40)
[2022-10-13] MEDS: PANTOprazole 40 MG TAB PO SCH (20:40)
[2022-10-13] MEDS: CeleBREX 200 MG CAP PO SCH (20:40)
[2022-10-13] MEDS: ASPIRIN 81 MG ECTAB PO SCH (20:40)
[2022-10-14] MEDS: oxyCODONE HCL IR 5 MG TAB (IMMEDIATE RELEASE) PO PRN ×5 (00:16→21:12)
[2022-10-14] MEDS: SODIUM CHLORIDE 0.9% 1000ML 1,000 ML IV SCH (03:37)
[2022-10-14] MEDS: ceFAZolin 2000MG 2,000 MG/15 ML SYR IV SCH (04:42)
[2022-10-14 06:22] LABS: Hematocrit (blood only) 33.3 % (42.0-52.0); Hemoglobin 10.8 g/dl (14.0-18.0); Mean Corpuscular Hemoglobin 24.8 pg (25.0-34.0); Mean Corpuscular Hgb Conc 32.4 g/dL (32.0-36.0); Mean Corpuscular Volume 76.4 fL (80.0-100.0); Mean Platelet Volume 9.9 fL (9.4-12.4); Platelet Count 190 K/uL (130-400); RDW Coefficient of Variation 18.7 % (11.5-14.5); RDW Standard Deviation 52.1 fL (36.4-46.3); Red Blood Count 4.36 M/uL (4.70-6.10); White Blood Count 15.87 K/ul (4.8-10.8)
[2022-10-14 07:04] LABS: Calcium 8.8 mg/dl (8.6-10.3); Est GFR (African American) 104.6 ml/min; Est GFR (Non-African American) 90.2 ml/min; Potassium 4.1 mmol/L (3.5-5.1)
--- NOTE | 2022-10-14 07:48 | Orthopedic Progress Note ---
Date of Service October 14, 2022 Assessment & Plan (1) Osteoarthritis of left knee: Plan: Postop day 1 status post left total knee arthroplasty. PT/OT protocols. Weightbearing as tolerated. DVT prophylaxis-aspirin p.o. twice daily, MELL Chiadez. Pain management as written. Leukocytosis-likely secondary to preoperative steroids and/or surgical stress. Patient is currently asymptomatic. DC planning-patient is planning on going home post discharge and continue PT. Trying to decide on home health versus outpatient. Admission and Anticipated Discharge Date Admission Date: October 13, 2022 Subjective Postop day 1 Patient sitting up in bed awake and alert. Complains of pain over the patellar area and a little bit over the lateral aspect of the knee this morning. He does not appear overtly in acute distress. No other complaints this morning at this time. Physical Exam Physical Exam: Dressings are clean, dry, and intact. Calves appear soft and nontender. Neurovascular is intact. He has good dorsiflexion and plantarflexion of the left foot. Results & Data Vital Signs (Past 12 Hours) Vital Signs Temp Pulse Resp BP BP Pulse Ox O2 Del Method 10/14/22 07:00 36.4 C L 65 18 110/66 98 Room Air 10/14/22 03:37 36.4 C L 62 18 119/67 98 Room Air 10/13/22 23:45 36.4 C L 62 16 102/62 97 Room Air Laboratory Results Laboratory Results WBC 15.87 K/ul (4.8-10.8) H 10/14/22 06:05 RBC 4.36 M/uL (4.70-6.10) L 10/14/22 06:05 Hgb 10.8 g/dl (14.0-18.0) L 10/14/22 06:05 Hct 33.3 % (42.0-52.0) L 10/14/22 06:05 MCV 76.4 fL (80.0-100.0) L 10/14/22 06:05 MCH 24.8 pg (25.0-34.0) L 10/14/22 06:05 MCHC 32.4 g/dL (32.0-36.0) 10/14/22 06:05 RDW Std Deviation 52.1 fL (36.4-46.3) H 10/14/22 06:05 RDW Coeff of Ray 18.7 % (11.5-14.5) H 10/14/22 06:05 Plt Count 190 K/uL (130-400) 10/14/22 06:05 MPV 9.9 fL (9.4-12.4) 10/14/22 06:05 Sodium 136 mmol/L (136-145) 10/14/22 06:05 Potassium 4.1 mmol/L (3.5-5.1) 10/14/22 06:05 Chloride 105 mmol/L (98-107) 10/14/22 06:05 Carbon Dioxide 25 mmol/L (21-32) 10/14/22 06:05 Anion Gap 6 (3-11) 10/14/22 06:05 BUN 18 mg/dl (6-23) 10/14/22 06:05 Creatinine 0.82 mg/dl (0.6-1.4) 10/14/22 06:05 Est Cr Clr Drug Dosing 109.0 ml/min 10/14/22 06:05 Est GFR ( Amer) 104.6 ml/min 10/14/22 06:05 Est GFR (Non-Af Amer) 90.2 ml/min 10/14/22 06:05 BUN/Creatinine Ratio 22.0 (10-20) H 10/14/22 06:05 Glucose 127 mg/dl (70-99(Fasting)) H 10/14/22 06:05 Calcium 8.8 mg/dl (8.6-10.3) 10/14/22 06:05 SARS-CoV-2, RNA, NAAT NEGATIVE (NEGATIVE) 10/13/22 Unknown Blood Type O Positive 10/13/22 10:52 Antibody Screen NEGATIVE 10/13/22 10:52
[2022-10-14] MEDS: BISOPROLOL FUMARATE 5 MG TAB PO SCH (07:55)
[2022-10-14] MEDS: EZETIMIBE 10 MG TABLET PO SCH (07:55)
[2022-10-14] MEDS: dilTIAZem HCL 120 MG CAPCR PO SCH (07:55)
[2022-10-14] MEDS: PANTOprazole 40 MG TAB PO SCH ×2 (07:55→20:34)
[2022-10-14] MEDS: DOCUSATE SODIUM 100 MG CAP PO SCH ×2 (07:55→20:34)
[2022-10-14] MEDS: CeleBREX 200 MG CAP PO SCH (07:55)
[2022-10-14] MEDS: ASPIRIN 81 MG ECTAB PO SCH ×2 (07:56→20:34)
[2022-10-14] MEDS: MULTIVITAMIN TAB PO SCH (07:56)
[2022-10-14] MEDS ORDERED: dexAMETHasone 10 MG in SYRINGE 0 ML IV SCH (08:00)
[2022-10-14] MEDS ORDERED: HYDROmorphone INJ 0.5 MG/0.5 ML SYR IV PRN (11:43)
[2022-10-14] MEDS: KETOROLAC 30 MG/ML VIAL IV SCH ×3 (11:58→23:06)
--- NOTE | 2022-10-14 16:47 | Hospitalist Consultation ---
Date of Consultation October 14, 2022 Assessment & Plan (1) Osteoarthritis of left knee: per primary service Leukocytosis likely reactive. No signs of SIRS. (2) Status post right knee replacement: tolerated procedure well. per primary service (3) Hypertension: - BP well controlled on Diltiazem & Bisoprolol (4) Hyperlipidemia: - Continue Zetia and Crestor (5) GERD (gastroesophageal reflux disease): continue pantoprazole History of Present Illness Reason for Consultation: medical management Attending Physician: Mitchel James MD History of Present Illness Mr. Abraham is a pleasant 67 y/o M who was admitted under Dr. James's service for elective leftt total knee arthroplasty due to osteoarthritis and chronic knee pain that failed conservative measures. . Patient resides at home with his in a one story apartment but does have to climb several steps to enter. He plans to return there upon discharge. Patient thus far has had a fairly uneventful perioperative course. He denies having a personal or family history of PE/DVT. He currently denies chest pain, dyspnea, n/v/d, f/c, headache, or gu symptoms. Hospitalists were asked to see in consult for medical management. Allergies Allergy/AdvReac Type Severity Reaction Status Date / Time No Known Drug Allergies Allergy Verified 10/13/22 11:10 Home Medications Medication Instructions Recorded Confirmed Type bisoprolol fumarate 5 mg tablet 5 mg PO QAM 90 days #90 tabs 05/20/22 10/13/22 Rx hydrocortisone 2.5 % topical cream See Rx Instructions .Route 07/09/22 10/13/22 Rx with perineal applicator .COMPLEX #28 grams (Procto-Med HC) aspirin 81 mg tablet,delayed 81 mg PO QAM 09/18/22 10/13/22 History release ferrous gluconate 324 mg (38 mg 324 mg PO .every other day 90 days 09/18/22 10/13/22 Rx iron) tablet #90 tabs diltiazem HCl 120 mg 120 mg PO QAM 10/01/22 10/13/22 History capsule,extended release 24 hr ezetimibe 10 mg tablet (Zetia) 10 mg PO QAM 10/01/22 10/13/22 History pantoprazole 40 mg tablet,delayed 40 mg PO BID 10/01/22 10/13/22 History release rosuvastatin 20 mg tablet (Crestor) 20 mg PO HS 10/01/22 10/13/22 History acetaminophen 500 mg capsule 1,000 mg PO Q8H pain 14 days #84 10/14/22 Rx caps aspirin 81 mg tablet,delayed 81 mg PO BID 30 days #60 tabs 10/14/22 Rx release polyethylene glycol 3350 17 gram 17 g PO DAILY PRN constipation #5 10/14/22 Rx oral powder packet (Miralax) ea Patient History Medical History Anemia PCP monitoring (pt occasionally takes PO iron supplements; not currently taking) GERD (gastroesophageal reflux disease) Hyperlipidemia Hypertension Osteoarthritis Osteoarthritis of right knee s/p TKA 04/28/22 Rheumatic fever AT AGE 7 Surgical History History of hernia surgery A CHILD History of tonsillectomy and adenoidectomy History of tooth extraction Hx of total knee replacement Right TKA 04/28/22: SAB (L3-4 x 1 attempt), PNB, MAC Family History Mother Hypertension Other No family history of adverse response to anesthesia Denies family history of Ovarian cancer Prostate cancer Myocardial infarction Breast cancer Colorectal cancer Social History Smoking Status: Never smoker Cigarettes Per Day: HOOKAH USE IN PAST; Second Hand Exposure: No; Do You Dip or Chew Tobacco: No; Tobacco Cessation Education Requested by Patient: No Hx Alcohol Use: No Hx Substance Use: No Preferred Language: Romanian Communication Ability: Impaired Communication Ability Comment: LANGUAGE BARRIER Communication Tools: Language Line Administrative Secretary Visual Impairment: No Limitations Hearing Ability: Normal Administrative Secretary Required: Yes and Video Beliefs That Will Affect Care: None marital status: Current Living Situation: Spouse and Family current occupational status: retired How many Children do You have: 4 Other Information That Helps Us Care for You: No Childhood Exposure to Second-Hand Smoke: No caffeine: Yes (tea daily ) Dental Care, Regularly: Yes Physical Activity Frequency: Does not Exercise Seatbelt Use: always Sunscreen Use: Yes Assistive Devices: Cane Review of Systems Review of Systems: All systems reviewed & are unremarkable except as noted in HPI & below Physical Exam Physical Exam: GENERAL: 67 yo Well-developed, well-nourished male. NAD. HENT: AT/NC. PERRLA. Neck supple. No lymphadenopathy. LUNGS: Clear to auscultation bilaterally. No W/R/R. CARDIOVASCULAR: Regular rate and rhythm. ABDOMEN: Soft, non-tender and non-distended. Bs normoactive x 4 quad. EXTREMITIES: No edema. Non-tender. NEUROLOGIC: A&O x3. No focal neurological deficits. CN II-XII grossly intact. PSYCHIATRIC: Cooperative. Appropriate mood and affect. SKIN: Warm, dry, intact. No rashes or lesions. Results & Data Results & Data Vital Signs (Past 12 Hours) Vital Signs Temp Pulse Resp BP BP Pulse Ox O2 Del Method 10/14/22 12:09 36.5 C 62 18 121/72 94 Room Air 10/14/22 08:00 Room Air 10/14/22 07:00 36.4 C L 65 18 110/66 98 Room Air PG Care Time/CCT Total # of Minutes Spent Total Time Spent with Patient: Total time spent is greater than 50% in coordination of care (as documented) at patient's floor/unit and/or counseling patient: Coding Level of Care Code 06678 IN/OBS CONSULT LVL 3,45M Diagnoses Osteoarthritis of left knee M17.12 Status post right knee replacement Z96.651 Hypertension I10 Hyperlipidemia E78.5 GERD (gastroesophageal reflux disease) K21.9
[2022-10-14] MEDS: ROSUVASTATIN CALCIUM 20 MG TAB PO SCH (20:34)
[2022-10-14] MEDS ORDERED: MELATONIN 3 MG TAB PO PRN (21:56)
[2022-10-14] MEDS ORDERED: ARTIFICIAL TEARS OP PRN (21:56)
[2022-10-15] MEDS: KETOROLAC 30 MG/ML VIAL IV SCH ×3 (05:05→16:57)
[2022-10-15] MEDS: DOCUSATE SODIUM 100 MG CAP PO SCH (08:37)
[2022-10-15] MEDS: MULTIVITAMIN TAB PO SCH (08:37)
[2022-10-15] MEDS: PANTOprazole 40 MG TAB PO SCH (08:37)
[2022-10-15] MEDS: ASPIRIN 81 MG ECTAB PO SCH (08:37)
[2022-10-15 08:38] LABS: Hemoglobin 10.6 g/dl (14.0-18.0); Mean Corpuscular Hemoglobin 24.7 pg (25.0-34.0); Mean Corpuscular Hgb Conc 32.1 g/dL (32.0-36.0); Mean Corpuscular Volume 76.7 fL (80.0-100.0); Platelet Count 176 K/uL (130-400); RDW Coefficient of Variation 19.4 % (11.5-14.5); RDW Standard Deviation 52.9 fL (36.4-46.3); White Blood Count 11.32 K/ul (4.8-10.8)
[2022-10-15] MEDS: FERROUS GLUCONATE 324 MG TAB PO SCH (08:38)
[2022-10-15] MEDS: EZETIMIBE 10 MG TABLET PO SCH (08:38)
[2022-10-15] MEDS: dilTIAZem HCL 120 MG CAPCR PO SCH (08:38)
[2022-10-15] MEDS: BISOPROLOL FUMARATE 5 MG TAB PO SCH (08:38)
[2022-10-15] MEDS: oxyCODONE HCL IR 5 MG TAB (IMMEDIATE RELEASE) PO PRN (08:44)
[2022-10-15 09:13] LABS: BUN Creatinine Ratio 22.1 (10-20); Est GFR (African American) 102.5 ml/min; Est GFR (Non-African American) 88.5 ml/min; Potassium 4.2 mmol/L (3.5-5.1)
--- NOTE | 2022-10-15 09:21 | Hospitalist Progress Note ---
Date of Service October 15, 2022 Assessment & Plan (1) Osteoarthritis of left knee: Plan: POD#1 s/p Left Total Knee Arthroplasty, Cemented(Left) - Mitchel James MD EBL 5cc Pain control/bowel regimen/PT/OT per primary service DVT prophylaxis with ASA 81mg BID Leukocytosis likely reactive -- trending down, afebrile, no signs of SIRs. Hgb stable on repeat Dispo: per primary service -- planning for d/c later today. Discussed w/ ortho PA Please call hospitalist service with any questions/concerns. (2) Status post right knee replacement: Plan: tolerated procedure well. per primary service PT/OT as above, dispo per primary service (3) Hypertension: Plan: BP stable, currently 120/68 Remains on diltiazem/bisoprolol (4) Hyperlipidemia: Plan: Chronic, stable Continue Zetia and Crestor (5) GERD (gastroesophageal reflux disease): Plan: Chronic, stable continue pantoprazole no issues reported Plan Thank you for allowing hospitalist service to participate in the care of Mr Abraham. Patient plans on d/c this evening when son able to come and pick him up. Hospitalist service will sign off at this time. Please call with any questions/concerns. Admission and Anticipated Discharge Date Admission Date: October 13, 2022 Supervising Physician Co-Signing Physician Notes The patient was not seen by me. The chart was reviewed. Case discussed with TEJINDER Wolfe. Agree with assessment and plan Subjective Patient evaluated this morning, pain reported but given something and effective. Eating/drinking without issue. No fever/chills, chest pain, shortness of breath, abdominal pain, nausea or vomiting. Reports son will not be here until 5-6pm to take him home Questions/concerns answered at this time. Discussed w/ ortho PA, planning for dc later today but unable to reach son at this time due to call being dropped. Review of Systems Review of Systems: All systems reviewed & are unremarkable except as noted in HPI & below Physical Exam Physical Exam: GENERAL: WD/WN 67yo male sitting up in bed, NAD HEENT: head normocephalic, atraumatic, mmm, trachea midline Resp: CTAB, no w/c/r, on room air CV: RRR, no significant pitting edema, calves supple/nontender, pulses palpable GI: +BS, soft/NT : no choi MSK/Neuro: dressing to RLE c/w/i, toes mobile, sensation intact, strength equal no focal deficit, follows commands Psych: AOx3, cooperative with examination Skin: perfused, no obvious lesions/rashes Results & Data Results & Data Vital Signs (Past 12 Hours) Vital Signs Temp Pulse Resp BP Pulse Ox O2 Del Method 10/15/22 07:51 36.5 C 54 L 18 120/68 96 Room Air 10/14/22 23:10 36.3 C L 56 L 18 112/62 95 Room Air Laboratory Results 10/15/22 10/15/22 Range/Units 08:19 08:19 WBC 11.32 H (4.8-10.8) K/ul RBC 4.30 L (4.70-6.10) M/uL Hgb 10.6 L (14.0-18.0) g/dl Hct 33.0 L (42.0-52.0) % MCV 76.7 L (80.0-100.0) fL MCH 24.7 L (25.0-34.0) pg MCHC 32.1 (32.0-36.0) g/dL RDW Std Deviation 52.9 H (36.4-46.3) fL RDW Coeff of Ray 19.4 H (11.5-14.5) % Plt Count 176 (130-400) K/uL MPV 10.0 (9.4-12.4) fL Sodium 139 (136-145) mmol/L Potassium 4.2 (3.5-5.1) mmol/L Chloride 105 (98-107) mmol/L Carbon Dioxide 29 (21-32) mmol/L Anion Gap 5 (3-11) BUN 19 (6-23) mg/dl Creatinine 0.86 (0.6-1.4) mg/dl Est Cr Clr Drug Dosing 104.0 ml/min Est GFR ( Amer) 102.5 ml/min Est GFR (Non-Af Amer) 88.5 ml/min BUN/Creatinine Ratio 22.1 H (10-20) Glucose 99 (70-99(Fasting)) mg/dl Calcium 9.0 (8.6-10.3) mg/dl PG Care Time/CCT Total # of Minutes Spent Total Time Spent with Patient: Total time spent is greater than 50% in coordination of care (as documented) at patient's floor/unit and/or counseling patient: Coding Level of Care Code 71694 SUB INP/OBS CARE MIN Diagnoses Osteoarthritis of left knee M17.12 Status post right knee replacement Z96.651 Hypertension I10 Hyperlipidemia E78.5 GERD (gastroesophageal reflux disease) K21.9
--- NOTE | 2022-10-15 11:02 | Orthopedic Progress Note ---
Date of Service October 15, 2022 Assessment & Plan (1) Osteoarthritis of left knee: Plan: Postop day 2 status post left total knee arthroplasty. PT/OT protocols. Weightbearing as tolerated. DVT prophylaxis-aspirin p.o. twice daily, SCDs, MELL ascencio. Pain management as written. Leukocytosis-likely secondary to preoperative steroids and/or surgical stress. Patient is currently asymptomatic. This is trending down. DC planning-patient is planning on going home post discharge and continue PT. likely will plan on outpatient physical therapy. Plan on discharge home this afternoon. Admission and Anticipated Discharge Date Admission Date: October 13, 2022 Subjective Patient is postop day 2 left total knee. He has complaint of pain, otherwise he is doing well. History is difficult due to language barrier. Review of Systems Review of Systems: All systems reviewed & are unremarkable except as noted in Subjective Physical Exam Physical Exam: Left knee: Dressing is clean, dry, intact. Toes are mobile with good dorsiflexion. No calf tenderness. Pain with straight leg raise however is able to do so. Constitutional: WD/WN, vitals as above Results & Data Vital Signs (Past 12 Hours) Vital Signs Temp Pulse Resp BP Pulse Ox O2 Del Method 10/15/22 07:51 36.5 C 54 L 18 120/68 96 Room Air 10/14/22 23:10 36.3 C L 56 L 18 112/62 95 Room Air
--- NOTE | 2022-10-20 14:36 | Discharge Summary ---
Date of Service October 20, 2022 Admission HPI Per Admitting Provider The patient is a 67-year-old male with left knee osteoarthritis. After failing conservative treatment I recommended proceeding with a left total knee replacement. Principal Diagnosis Osteoarthritis left knee Discharge Exam Left knee: Dressing is clean, dry, intact. Toes are mobile with good dorsiflexion. No calf tenderness. Pain with straight leg raise however is able to do so. Constitutional WD/WN, vitals as above Discharge Data Allergies Allergy/AdvReac Type Severity Reaction Status Date / Time No Known Drug Allergies Allergy Verified 10/13/22 11:10 Consultations 10/13/22 15:07 Consult Hospitalist Routine Procedures Performed Operation Date: 10/13/22 12:45 Actual Procedures p Left Total Knee Arthroplasty, Cemented(Left) - Mitchel James MD Ordered Studies 10/13/22 05:00 US - OR guided needle placemen Routine Hospital Course (1) Osteoarthritis of left knee: Postop day 2 status post left total knee arthroplasty. PT/OT protocols. Weightbearing as tolerated. DVT prophylaxis-aspirin p.o. twice daily, SCDs, MELL ascencio. Pain management as written. Leukocytosis-likely secondary to preoperative steroids and/or surgical stress. Patient is currently asymptomatic. This is trending down. DC planning-patient is planning on going home post discharge and continue PT. likely will plan on outpatient physical therapy. Plan on discharge home this afternoon. Total Time Total Time Spent Total Time Spent (In Minutes): 30 minutes Discharge Plan Discharge Items Patient Disposition: Home - Self-Care Reason For Visit: STATUS POST LEFT TOTAL KNEE REPLACEMENT HISTORY Discharge Diagnosis: Left knee osteoarthritis Activity: Per Instructions section Weightbearing: Left weightbearing Weightbearing Comment: As tolerated with walker Non-emergency contact: Surgeon Call non-emergency contact if: you have any medication questions, your pain is not controlled, your temperature is above 101.5, your wound has increased redness and your wound has increased drainage Follow-up/Referrals: Mitchel James MD [Surgeon] - (Follow-up with Dr. James in 2 weeks from the day of your surgery for your first postoperative visit.) Ulises Cedillo DO [Primary Care Provider] - 10/21/22 2:45 pm Diet: Regular Addtl Attending Provider Instructions: Take aspirin 81mg twice daily x 30 days for DVT prophylaxis. Take cefadroxil 500mg twice daily x 14 days. Take Celebrex 200mg twice daily x 30 days. Aspirin, cefadroxil, Celebrex, oxycodone, Tylenol, and Zofran sent to patient's pharmacy by [facility] [place]. Weightbearing as tolerated. Patient should already have walker. LOPEZ wrap can be removed POD#1. Silverlon dressing to remain in place for 7 days. Patient may shower 7 days following surgery. Do not submerge the knee in water. Patient is to be discharged home with home nursing and home physical therapy. Discharge instructions from [facility] [place] to be given to patient at discharge. These are in their chart. Pending Studies at Discharge: No Stand-Alone Forms: [facility] [employer], Smoking Cessation Medications and DC Order Prescriptions: New aspirin 81 mg Tablet,Delayed Release (Dr/Ec) 81 mg PO BID 30 Days Qty: 60 0RF acetaminophen 500 mg capsule 1,000 mg PO Q8H 14 Days Qty: 84 0RF polyethylene glycol 3350 [Miralax] 17 gram powder in packet 17 g PO DAILY PRN (Reason: constipation) Qty: 5 0RF Continued hydrocortisone [Procto-Med HC] 2.5 % cream with perineal applicator See Rx Instructions .ROUTE .COMPLEX Qty: 28 1RF Dose Instruction: APPLY RECTALLY DAILY NEEDED FOR HEMORRHOIDS Rx Instructions: APPLY RECTALLY DAILY NEEDED FOR HEMORRHOIDS ferrous gluconate 324 mg (38 mg iron) tablet 324 mg PO .every other day 90 Days Qty: 90 2RF bisoprolol fumarate 5 mg tablet 5 mg PO QAM 90 Days Qty: 90 3RF pantoprazole 40 mg tablet,delayed release (DR/EC) 40 mg PO BID diltiazem HCl 120 mg capsule,extended release 24hr 120 mg PO QAM Rx Instructions: Take 1 tablet daily ezetimibe [Zetia] 10 mg tablet 10 mg PO QAM rosuvastatin [Crestor] 20 mg tablet 20 mg PO HS Discontinued aspirin 81 mg tablet,delayed release (DR/EC) 81 mg PO QAM Discharge Orders: Discharge Order (Routine); Ordered 10/15/22 Ordered By: Mikhail Farrell/Other Patient Handouts: DVT Post Op Prevention, Tips After Knee Surgery Admission Data Admit Date/Time: 10/13/22 15:08 Attending Provider: Mitchel James Admit Provider: Mitchel James Primary Care Provider: Ulises Cedillo Other Providers: Ulises Ring ; Lamont Natarajan ; [facility] Other Interventions: Discharge Summary Assessment (RN) Last Done: 10/15/22 11:21
== END 2022-10-15 18:24 | disposition home or self-care (01) | DRG 554 ==
LOC: ASU 10:32 → OBSVTOIN 15:08 → 3E 15:08 → INTOOBSV 15:08